=== PATIENT | female | born 1975 | race Asian ===

== ENCOUNTER 2019-03-22 19:21 | Emergency (ER) | payer OTHER, BC | END 2019-03-22 21:50 | disposition home or self-care (01) | LOC: JERFT 19:21 ==

== ENCOUNTER 2021-02-14 00:08 | Emergency (ER) | payer OTHER ==
[2021-02-14 00:30] VITALS: BP 150/99; PULSE 85; TEMP 98.1; BMI 35.1
[2021-02-14] MEDS ORDERED: IBUPROFEN 600 MG TABLET (FP) PO ONE ×2 (00:44→01:06)
== END 2021-02-14 01:09 | disposition home or self-care (01) ==
LOC: JER 00:08
DX: M25.522 Pain in left elbow (principal)
CPT/HCPCS: 93005; 93010; 99283-25